=== PATIENT | male | born 1985 | race Caucasian/White ===

== ENCOUNTER 2023-10-26 06:28 | Emergency (ER) | payer BC, SELFPAY ==
[2023-10-26] VITALS (9 sets, daily range): BP systolic 80–140; BP diastolic 45–72; PULSE 56–85; RESP 18; TEMP 36.5–36.9; O2SAT 96–100; BMI 20.9
--- NOTE | 2023-10-26 06:31 | HMH.EDGENADL ---
Discharge Plan Disposition Patient Disposition: Home, Self-Care Condition: Good Prescriptions Prescriptions: New ondansetron 4 mg tablet,disintegrating 4 mg PO Q6 PRN (Reason: nausea and vomiting) 4 Days Qty: 16 0RF Activity Restrictions/Add. Instructions Additional Instructions/Restrictions: You have been evaluated in the ED for your complaints. You may follow-up with your PCP in the next 3 to 5 days. Please return to ED for any new or worsening symptoms. I have written for Karla to assist with your nausea. Clinical Impressions Clinical Impression: Abdominal pain Qualifiers: Abdominal location: left lower quadrant Qualified Code(s): R10.32 - Left lower quadrant pain Diarrhea Qualifiers: Diarrhea type: unspecified type Qualified Code(s): R19.7 - Diarrhea, unspecified Instructions Patient Instructions: DI for Acute Abdominal Pain Discharge ED Provider: Richar Cooper Adult HPI <Richar Cooper MD - Last Filed: 10/26/23 06:42> General Chief complaint: Abdominal Pain Stated complaint: abdominal pain Time Seen by Provider: 10/26/23 06:30 History of Present Illness HPI narrative: 38-year-old male with no significant past medical history presents with multiple complaints. He reports moderate to severe abdominal pain, localizing to the left lower quadrant. He reports he has been having diarrhea. He also reports some belching. Symptoms have been present since yesterday and have been worsening. No history of abdominal surgery. No reported fever. Denies any urinary symptoms Related Data Previous Rx's Medication Instructions Recorded ondansetron 4 mg disintegrating 4 mg PO Q6 PRN nausea and vomiting 10/26/23 tablet 4 days #16 tabs Allergies Allergy/AdvReac Type Severity Reaction Status Date / Time PENICILLIN Allergy Unknown HIVES, Uncoded 08/25/17 15:42 THROAT SWELLS [facility] <Richar Cooper MD - Last Filed: 10/26/23 06:42> [facility] Disclaimer: The information contained in this section may have been updated after the patient was seen, as this information can be updated by other users. Social History (Updated 10/26/23 @ 06:42 by Richar Cooper MD) Smoking Status: Unknown if ever smoked alcohol intake: never current occupational status: employed Travel in the last 8 weeks: None <Richar Cooper MD - Last Filed: 10/26/23 06:42> ROS Obtained: Yes All systems reviewed & no additional complaints except as documented Physical Exam <Richar Cooper MD - Last Filed: 10/26/23 06:42> General General appearance: alert Comment: Uncomfortable appearing Head Head exam: atraumatic and normocephalic Eye Eye exam: Present normal appearance, PERRL and EOMI ENT ENT exam: Present normal oropharynx and normal external ear exam Neck Neck exam: Present normal inspection and full ROM Chest Chest inspection: Present normal inspection and symmetric chest wall rise; Absent tenderness Respiratory Respiratory exam: Present normal lung sounds bilaterally; Absent respiratory distress Cardiovascular Cardiovascular exam: Present regular rate and normal rhythm Abdominal Exam Abdominal exam: Present soft and tenderness (Mild, generalized, worse in the left lower quadrant); Absent distention or guarding Extremities Exam Extremities exam: Present normal inspection; Absent edema or joint swelling Back Exam Back exam: Present normal inspection; Absent tenderness Neurological Exam Neurological exam: Present alert and oriented X3; Absent motor sensory deficit Psychiatric Psychiatric exam: Present normal affect and normal mood Skin Skin exam: Present warm, dry and normal color Lymphatic Lymphatic Findings: no adenopathy Medical Decision Making <Richar Cooper MD - Last Filed: 10/26/23 06:42> Medical Records Medical records reviewed: Yes I reviewed the patient's medical records. Franki Inquiry Pt receiving controlled substance: No Franki was queried for this patient: No Vital Signs: 10/26/23 06:29 10/26/23 07:09 10/26/23 07:30 Temperature 98.4 F Temperature Source Oral Pulse Rate 61 61 Pulse Rate [Radial] 73 Respiratory Rate 18 Blood Pressure 95/59 L Blood Pressure [Left Arm] 140/66 Blood Pressure Mean [Left Arm] 90 Blood Pressure Source [Left Arm] Automatic Cuff Blood Pressure Position [Left Arm] Supine 02 Sat by Pulse Oximetry 100 100 100 Oxygen Delivery Method Room Air Room Air 10/26/23 08:00 10/26/23 09:00 10/26/23 10:00 Temperature Temperature Source Pulse Rate 60 67 65 Pulse Rate [Radial] Respiratory Rate Blood Pressure 81/54 L 86/52 L 80/45 L Blood Pressure [Left Arm] Blood Pressure Mean [Left Arm] Blood Pressure Source [Left Arm] Blood Pressure Position [Left Arm] 02 Sat by Pulse Oximetry 99 97 96 Oxygen Delivery Method Room Air Room Air Lab Data Lab results reviewed: Yes I reviewed the patient's lab results. Lab Results 10/26/23 06:34: Urine Color Yellow, Urine Appearance Clear, Urine pH 7.5, Ur Specific [place] 1.020, Urine Protein Negative, Urine Glucose (UA) Negative, Urine Ketones Negative, Urine Blood Negative, Urine Nitrate Negative, Urine Bilirubin Negative, Urine Urobilinogen 1.0, Ur Leukocyte Esterase Negative, Urine RBC None, Urine WBC None, Ur Squamous Epith Cells 3-5, Urine Bacteria Trace 10/26/23 06:39: WBC 13.8 H, RBC 4.62, Hgb 16.0, Hct 46.8, MCV 101.4 H, MCH 34.6 H, MCHC 34.1, RDW 12.6, Plt Count 248, MPV 8.0, Neut % (Auto) 81.4 H, Lymph % (Auto) 13.1, [place] % (Auto) 3.9, Eos % (Auto) 1.4, Baso % (Auto) 0.1, Neut # (Auto) 11.2 H, Lymph # (Auto) 1.8, [place] # (Auto) 0.5, Eos # (Auto) 0.2, Baso # (Auto) 0.0, Sodium 138, Potassium 3.9, Chloride 105, Carbon Dioxide 28, Anion Gap 8.9, BUN 14, Creatinine 0.70, Estimated Creat Clear 139, Estimated GFR 125, Est GFR ( Amer) 151, Glucose 112 H, Calcium 9.1, Total Bilirubin 0.9, AST 26, ALT 22, Alkaline Phosphatase 58, Total Protein 7.3, Albumin 4.5, Globulin 2.8, Albumin/Globulin Ratio 1.6, Lipase 75 10/26/23 06:59: SARS-CoV-2 (PCR) Not detected, Influenza A Untype (PCR) Not detected, Influenza Type B (PCR) Not detected 10/26/23 06:39 10/26/23 06:39 Orders (Tests/Meds): ED MEDICATIONS Discontinued Medications Generic Name Dose Route Start Last Admin Trade Name Freq PRN Reason Stop Dose Admin Acetaminophen 1,000 mg 10/26/23 06:36 10/26/23 06:45 Acetaminophen 500mg Tab PO 10/26/23 06:37 1,000 mg ONCE ONE Administration Belladonna Alkaloids 60 ml 10/26/23 06:36 10/26/23 06:46 Belladonna Alkaloids 60 Ml Ml PO 10/26/23 06:37 60 ml ONCE ONE Administration Diphenhydramine HCl 12.5 mg 10/26/23 08:53 10/26/23 08:55 Diphenhydramine 50mg/Ml Vial IV 10/26/23 08:54 12.5 mg ONCE ONE Administration Lactated Ringer's 1,000 mls @ 999 mls/hr 10/26/23 07:15 10/26/23 07:12 Lactated Ringer's 1000 Ml Bag IV 10/26/23 08:15 999 mls/hr .Q1H1M NAHEED Administration Iopamidol 75 ml 10/26/23 08:14 10/26/23 08:14 Iopamidol-370 (76%);100ml Bottle IV 10/26/23 08:15 75 ml ONCE ONE Administration Ketorolac Tromethamine 30 mg 10/26/23 06:36 10/26/23 06:45 Ketorolac 30mg/Ml Vial IV 10/26/23 06:37 30 mg ONCE ONE Administration Ondansetron HCl 4 mg 10/26/23 06:36 10/26/23 06:45 Ondansetron 4mg/2ml Vial IV 10/26/23 06:37 4 mg ONCE ONE Administration Sodium Chloride 10 ml 10/26/23 08:14 10/26/23 08:14 Sodium Chloride 0.9% 10ml Syr (Rad Only) IV 10/26/23 08:15 10 ml ONCE ONE Administration ORDERS Category Date Time Status CT abdomen pelvis w con Stat Cat Scan 10/26/23 06:36 Completed CBC w/Auto Diff [Complete Blood Count Auto Diff] Stat Lab 10/26/23 06:39 Completed CMP [Comprehensive Metabolic Panel] Stat Lab 10/26/23 06:39 Completed Lipase Stat Lab 10/26/23 06:39 Completed Rapid PCR Covid and Flu A/B Stat Lab 10/26/23 06:59 Completed UA [Urinalysis and Microscopic] Stat Lab 10/26/23 06:34 Completed Medical Decision Narrative: 38-year-old male with no significant past medical history presents to the emergency department with nausea vomiting diarrhea and focal left lower quadrant abdominal pain. History was obtained interactive discussion with patient, family, chart review. On arrival, patient is [afebrile, hemodynamically stable, satting appropriately, alert, oriented x4, GCS 15], moving all extremities spontaneously. Full physical exam performed and significant for left lower quadrant abdominal tenderness Differential includes but is not limited to gastroenteritis, influenza, colitis, diverticulitis, pancreatitis. Patient was given Tylenol, Toradol, Zofran, GI cocktail for symptomatic management and correction of underlying abnormalities. Workup initiated including CBC CMP lipase CT abdomen pelvis with IV contrast. At this time care handed off to oncoming physician. <Amadou Peralta, DO - Last Filed: 10/26/23 10:32> Vital Signs: 10/26/23 06:29 10/26/23 07:09 10/26/23 07:30 Temperature 98.4 F Temperature Source Oral Pulse Rate 61 61 Pulse Rate [Radial] 73 Respiratory Rate 18 Blood Pressure 95/59 L Blood Pressure [Left Arm] 140/66 Blood Pressure Mean [Left Arm] 90 Blood Pressure Source [Left Arm] Automatic Cuff Blood Pressure Position [Left Arm] Supine 02 Sat by Pulse Oximetry 100 100 100 Oxygen Delivery Method Room Air Room Air 10/26/23 08:00 10/26/23 09:00 10/26/23 10:00 Temperature Temperature Source Pulse Rate 60 67 65 Pulse Rate [Radial] Respiratory Rate Blood Pressure 81/54 L 86/52 L 80/45 L Blood Pressure [Left Arm] Blood Pressure Mean [Left Arm] Blood Pressure Source [Left Arm] Blood Pressure Position [Left Arm] 02 Sat by Pulse Oximetry 99 97 96 Oxygen Delivery Method Room Air Room Air Lab Data Lab Results 10/26/23 06:34: Urine Color Yellow, Urine Appearance Clear, Urine pH 7.5, Ur Specific [place] 1.020, Urine Protein Negative, Urine Glucose (UA) Negative, Urine Ketones Negative, Urine Blood Negative, Urine Nitrate Negative, Urine Bilirubin Negative, Urine Urobilinogen 1.0, Ur Leukocyte Esterase Negative, Urine RBC None, Urine WBC None, Ur Squamous Epith Cells 3-5, Urine Bacteria Trace 10/26/23 06:39: WBC 13.8 H, RBC 4.62, Hgb 16.0, Hct 46.8, MCV 101.4 H, MCH 34.6 H, MCHC 34.1, RDW 12.6, Plt Count 248, MPV 8.0, Neut % (Auto) 81.4 H, Lymph % (Auto) 13.1, [place] % (Auto) 3.9, Eos % (Auto) 1.4, Baso % (Auto) 0.1, Neut # (Auto) 11.2 H, Lymph # (Auto) 1.8, [place] # (Auto) 0.5, Eos # (Auto) 0.2, Baso # (Auto) 0.0, Sodium 138, Potassium 3.9, Chloride 105, Carbon Dioxide 28, Anion Gap 8.9, BUN 14, Creatinine 0.70, Estimated Creat Clear 139, Estimated GFR 125, Est GFR ( Amer) 151, Glucose 112 H, Calcium 9.1, Total Bilirubin 0.9, AST 26, ALT 22, Alkaline Phosphatase 58, Total Protein 7.3, Albumin 4.5, Globulin 2.8, Albumin/Globulin Ratio 1.6, Lipase 75 10/26/23 06:59: SARS-CoV-2 (PCR) Not detected, Influenza A Untype (PCR) Not detected, Influenza Type B (PCR) Not detected Orders (Tests/Meds): ED MEDICATIONS Discontinued Medications Generic Name Dose Route Start Last Admin Trade Name Freq PRN Reason Stop Dose Admin Acetaminophen 1,000 mg 10/26/23 06:36 10/26/23 06:45 Acetaminophen 500mg Tab PO 10/26/23 06:37 1,000 mg ONCE ONE Administration Belladonna Alkaloids 60 ml 10/26/23 06:36 10/26/23 06:46 Belladonna Alkaloids 60 Ml Ml PO 10/26/23 06:37 60 ml ONCE ONE Administration Diphenhydramine HCl 12.5 mg 10/26/23 08:53 10/26/23 08:55 Diphenhydramine 50mg/Ml Vial IV 10/26/23 08:54 12.5 mg ONCE ONE Administration Lactated Ringer's 1,000 mls @ 999 mls/hr 10/26/23 07:15 10/26/23 07:12 Lactated Ringer's 1000 Ml Bag IV 10/26/23 08:15 999 mls/hr .Q1H1M NAHEED Administration Iopamidol 75 ml 10/26/23 08:14 10/26/23 08:14 Iopamidol-370 (76%);100ml Bottle IV 10/26/23 08:15 75 ml ONCE ONE Administration Ketorolac Tromethamine 30 mg 10/26/23 06:36 10/26/23 06:45 Ketorolac 30mg/Ml Vial IV 10/26/23 06:37 30 mg ONCE ONE Administration Ondansetron HCl 4 mg 10/26/23 06:36 10/26/23 06:45 Ondansetron 4mg/2ml Vial IV 10/26/23 06:37 4 mg ONCE ONE Administration Sodium Chloride 10 ml 10/26/23 08:14 10/26/23 08:14 Sodium Chloride 0.9% 10ml Syr (Rad Only) IV 10/26/23 08:15 10 ml ONCE ONE Administration ORDERS Category Date Time Status CT abdomen pelvis w con Stat Cat Scan 10/26/23 06:36 Completed CBC w/Auto Diff [Complete Blood Count Auto Diff] Stat Lab 10/26/23 06:39 Completed CMP [Comprehensive Metabolic Panel] Stat Lab 10/26/23 06:39 Completed Lipase Stat Lab 10/26/23 06:39 Completed Rapid PCR Covid and Flu A/B Stat Lab 10/26/23 06:59 Completed UA [Urinalysis and Microscopic] Stat Lab 10/26/23 06:34 Completed Medical Decision Narrative: 38-year-old male with no significant past medical history presents to the emergency department with nausea vomiting diarrhea and focal left lower quadrant abdominal pain. History was obtained interactive discussion with patient, family, chart review. On arrival, patient is [afebrile, hemodynamically stable, satting appropriately, alert, oriented x4, GCS 15], moving all extremities spontaneously. Full physical exam performed and significant for left lower quadrant abdominal tenderness Differential includes but is not limited to gastroenteritis, influenza, colitis, diverticulitis, pancreatitis. Patient was given Tylenol, Toradol, Zofran, GI cocktail for symptomatic management and correction of underlying abnormalities. Workup initiated including CBC CMP lipase CT abdomen pelvis with IV contrast. At this time care handed off to oncoming physician. Dr. Peralta: WBC of 13.8. CMP nonactionable. Lipase within range at 75. No transaminitis. Urinalysis without signs of UTI. Negative COVID and influenza swabs. CT results noting constipation without any other acute intra-abdominal abnormalities. On reassessment the patient remains medically stable and in no acute distress. Has been able to tolerate oral intake. Pain is controlled at this time. Discussed with patient ED work-up and results and current plan to discharge with prescription for Zofran to further assist. Also discussed use of MiraLAX as needed. Provided with return to ED precautions and instructions concerning PCP follow-up. Patient verbalized understanding and agreement with plan. Subsequently discharged hemodynamically stable and in no acute distress. Procedures <Richar Cooper MD - Last Filed: 10/26/23 06:42> Risk/Benefits of Procedure(s) Were Explained: Yes Critical Care <Richar Cooper MD - Last Filed: 10/26/23 06:42> Critical Care Time Critical Care Time: No
--- NOTE | 2023-10-26 06:36 | CT_ITS ---
FINAL REPORT TECHNIQUE: After the administration of intravenous contrast, axial images were obtained through the abdomen and pelvis by computed tomography. The study was performed with techniques to keep radiation dose as low as reasonably achievable, (ALARA). Individual dose reduction techniques using automated exposure control or adjustment of mA and/or kV according to the patient's size were employed. CLINICAL HISTORY: nausea,vomiting, LLQ pain COMPARISON: None FINDINGS: Abdomen: The lung bases are clear. The liver parenchyma is homogeneous. The gallbladder is present. The spleen, pancreas, adrenals and kidneys appear unremarkable. The aorta is normal in caliber. There is no free fluid or adenopathy. Pelvis: The appendix is normal. The urinary bladder is normal in size and configuration. There is a moderate amount of stool throughout the colon. There is no free fluid or adenopathy. No evidence of acute inflammation. IMPRESSION: Constipation. Reviewed, Interpreted and Dictated by Giovanni Corona MD Transcribed by Nava Arenas Authenticated and [facility]
[2023-10-26] MEDS: KETOROLAC 30MG/ML VIAL 30 MG IV (06:45)
[2023-10-26] MEDS: ACETAMINOPHEN 500MG TAB 1000 MG PO (06:45)
[2023-10-26] MEDS: ONDANSETRON 4MG/2ML VIAL 4 MG IV (06:45)
[2023-10-26] MEDS: BELLADONNA ALKALOIDS 60 ML ML PO (06:46)
[2023-10-26 06:47] LABS: Basophils % 0.1 % (0.1-2.0); Eosinophils # 0.2 K/mm3 (0.0-0.4); Eosinophils % 1.4 % (0.1-12.0); Hematocrit 46.8 % (42.0-52.0); Lymphocytes # 1.8 K/mm3 (0.7-4.5); Lymphocytes % 13.1 % (10-50); Mean Corpuscular HGB Conc 34.1 g/dL (31.8-35.4); Mean Corpuscular Hemoglobin 34.6 pg (27.0-31.2); Mean Corpuscular Volume 101.4 fl (80-94); Monocytes # 0.5 K/mm3 (0.1-1.0); Monocytes % 3.9 % (1.7-9.3); Neutrophils # 11.2 K/mm3 (1.8-7.8); Neutrophils % 81.4 % (37.0-80.0); Platelet Count 248 K/mm3 (142-424); Red Blood Count 4.62 M/mm3 (4.60-6.20); Red Cell Distribution Width 12.6 % (11.5-17.5); White Blood Count 13.8 K/mm3 (4.8-10.8)
[2023-10-26 07:02] LABS: Coronavirus 19, PCR Not Detected (NotDetected); Influenza A, PCR Not Detected (NotDetected); Influenza B, PCR Not Detected (NotDetected)
[2023-10-26] MEDS: LACTATED RINGERS 1000ML 1,000 ML 999 ML IV (07:12)
--- NOTE | 2023-10-26 07:12 | PC.NURSE ---
Rounded on pt. No needs or complaints voiced at this time. Call light placed within reach.
[2023-10-26 07:13] LABS: Chloride 105 mmol/L (98-107); Potassium 3.9 mmoL/L (3.5-5.1); Sodium 138 mmol/L (136-145)
[2023-10-26 07:16] LABS: Alanine Aminotransferase 22 U/L (12-78); Albumin Level 4.5 g/dl (3.5-5.0); Albumin/Globulin Ratio 1.6 (1.1-1.8); Alkaline Phosphatase 58 U/L (38-126); Anion Gap 8.9 mEq/L (5-15); Aspartate Amino Transferase 26 U/L (17-59); Bilirubin,Total 0.9 mg/dl (0.2-1.3); Blood Urea Nitrogen 14 mg/dl (9-20); Calcium 9.1 mg/dl (8.4-10.2); Carbon Dioxide 28 mmol/L (22.0-30.0); Creatinine Clearance Estimated 139 mL/min (50-200); Estimated Glomerular Filt Rate 125 ml/min (>60); GFR (African American) 151 ML/MIN (>60); Globulin 2.8 g/dL (1.3-3.2); Glucose 112 mg/dl (74-100); Lipase 75 U/L (23-300); Total Protein,Serum 7.3 g/dl (6.3-8.2)
--- NOTE | 2023-10-26 07:36 | PC.NURSE ---
FAMILY UPDATED AT THIS TIME
--- NOTE | 2023-10-26 08:09 | PC.NURSE ---
DR ZAPATA AT BEDSIDE TO UPDATE PT AND FAMILY ON POC
--- NOTE | 2023-10-26 08:11 | PC.NURSE ---
PT TO CT
[2023-10-26] MEDS: IOPAMIDOL-370 (76%);100ML BOTTLE 75 ML IV (08:14)
[2023-10-26] MEDS: SODIUM CHLORIDE 0.9% 10ML SYR (RAD ONLY) 10 ML IV (08:14)
--- NOTE | 2023-10-26 08:18 | PC.NURSE ---
PT RETURNED FROM CT
[2023-10-26 08:42] LABS: Microscopic, Urine URINE MICROSCOPIC (MICROSCOPIC)
[2023-10-26 08:45] LABS: Appearance,Urine CLEAR (Clear); Bilirubin,Urine Negative (Negative); Blood, Urine Negative (Negative); Color,Urine YELLOW (Yellow); Glucose,Urine (UA) Negative (Negative); Ketones,Urine Negative (Negative); Leukocyte Esterase,Urine Negative (Negative); Nitrate,Urine Negative (Negative); PH,Urine 7.5 (5.0-8.5); Protein,Urine Negative (Negative)
--- NOTE | 2023-10-26 08:51 | PC.NURSE ---
Patient complaining of itching. MD notified.
[2023-10-26] MEDS: diphenhydrAMINE 50MG/ML VIAL 12.5 MG IV (08:55)
[2023-10-26 09:00] LABS: Bacteria,Urine Trace /lpf
--- NOTE | 2023-10-26 09:13 | PC.NURSE ---
Patient resting in bed quietly.
--- NOTE | 2023-10-26 09:39 | PC.NURSE ---
Rounded on patient. Pillow provided. No other needs at this time.
--- NOTE | 2023-10-26 10:18 | PC.NURSE ---
Rounded on pt. Pt resting in bed with eyes closed. Respirations even and unlabored. Visitor remains at BS and call light within reach.
== END 2023-10-26 10:52 | disposition home or self-care (01) ==
PROVIDERS: Emergency Medicine; Emergency Provider Emergency Medicine
DX: R10.32 Left lower quadrant pain (principal); R19.7 Diarrhea, unspecified; R11.2 Nausea with vomiting, unspecified
CPT/HCPCS: 74177; 80053; 81001; 83690; 85025; 87636; 96361; 96374; 96375; 99285; J2405; Q9967

== ENCOUNTER 2025-04-11 16:30 | Outpatient (CLI) | payer BC, SELFPAY ==
[2025-04-11 17:26] LABS: Hematocrit 40.8 % (42.0-52.0); Hemoglobin 13.6 g/dL (14.1-18.0); Immature Granulocytes % 0.3 %; Mean Corpuscular HGB Conc 33.3 g/dL (31.8-35.4); Mean Corpuscular Hemoglobin 32.6 pg (27.0-31.2); Mean Corpuscular Volume 97.8 fl (80-94); Nucleated Red Blood Cells % 0 %; Platelet Count 214 K/mm3 (142-424); Red Blood Count 4.17 M/mm3 (4.60-6.20); Red Cell Distribution Width-SD 44.4 fL; White Blood Count 6.2 K/mm3 (4.8-10.8)
[2025-04-11 18:46] LABS: Albumin Level 3.8 g/dl (3.5-5.0); Chloride 102 mmol/L (98-107); Potassium 3.9 mmoL/L (3.5-5.1); Sodium 136 mmol/L (136-145)
[2025-04-11 18:48] LABS: Alanine Aminotransferase 16 U/L (12-78); Aspartate Amino Transferase 23 U/L (17-59); Blood Urea Nitrogen 10 mg/dl (9-20); Creatinine,Serum 0.50 mg/dl (0.66-1.25); Estimated Glomerular Filt Rate 183 ml/min (>60); GFR (African American) 222 ML/MIN (>60)
[2025-04-11 18:49] LABS: Albumin/Globulin Ratio 1.3 (1.1-1.8); Alkaline Phosphatase 55 U/L (38-126); Anion Gap 8.9 mEq/L (5-15); Bilirubin,Total 0.8 mg/dl (0.2-1.3); Calcium 9.4 mg/dl (8.4-10.2); Carbon Dioxide 29 mmol/L (22.0-30.0); Cholesterol 143 mg/dl (140-200); Globulin 2.9 g/dL (1.3-3.2); Glucose 81 mg/dl (74-100); HDL Cholesterol 34 mg/dl (40-60); Total Protein,Serum 6.7 g/dl (6.3-8.2); Triglycerides 117 mg/dl (30-150)
[2025-04-11 19:38] LABS: Hepatitis C Ab Qual. W/ RFX NEGATIVE (Negative)
[2025-04-11 20:17] LABS: Hemoglobin A1C 5.0 % (4.0-6.0)
== END 2025-04-11 23:59 | disposition home or self-care (01) ==
LOC: LAB.DROPOF 04-12 09:25
PROVIDERS: PCP Internal Medicine; Visit Provider Internal Medicine
DX: Z00.00 Encounter for general adult medical examination without abnormal findings (principal); D75.89 Other specified diseases of blood and blood-forming organs; Z11.59 Encounter for screening for other viral diseases; Z11.4 Encounter for screening for human immunodeficiency virus [HIV]; I25.10 Atherosclerotic heart disease of native coronary artery without angina pectoris
CPT/HCPCS: 80053; 80061; 83036; 85025; 86803; 87389

== ENCOUNTER 2025-04-17 15:32 | Outpatient (CLI) | payer BC, SELFPAY ==
--- NOTE | 2025-04-17 15:30 | US_ITS ---
FINAL REPORT TECHNIQUE: Sonographic images of the abdomen were obtained in all four quadrants. CLINICAL HISTORY: Abd pain COMPARISON: None FINDINGS: LIVER: Homogeneous. No focal hepatic lesion or intrahepatic biliary dilatation. Portal vein is patent. GALLBLADDER: No gallstones. Small amount of sludge. No pericholecystic fluid collection or gallbladder wall thickening. The common duct measures 5 mm. This is within normal limits for age. PANCREAS: Unremarkable. RIGHT KIDNEY: 11.0 cm. No hydronephrosis, mass or stone. LEFT KIDNEY: 10.9 cm. No hydronephrosis, mass or stone. SPLEEN: 10.5 cm. No focal splenic lesion. AORTA/IVC: No abdominal aortic aneurysm. Visualized IVC within normal limits. OTHER: No ascites. IMPRESSION: Small amount of sludge in the gallbladder. Otherwise, unremarkable exam. Reviewed, Interpreted and Dictated by Juany Carlson MD Transcribed by Nava Arenas Authenticated and [facility]
--- OUTSIDE RECORDS SUMMARY | 2025-04-17 15:34 | XMS_ITS | Clinical Summary ---
[facility] Address [address] [place] [address] Care Team Providers Care Track Laying Machine Operator Name Role Phone Provider, No Known Primary Care Provider Unavail able Allergies Active Allergy Reactions Criticality Noted Date Comments Penicillins Anaphylaxis High 02/08/2017 Medications multivitamin with minerals tablet tablet Take 1 tablet by mouth Daily. Active fluticasone (FLONASE) 50 MCG/ACT nasal spray 2 sprays into the nostril(s) as directed by provider Daily. Active rosuvastatin (Crestor) 10 MG tabletIndications:Mi xed hyperlipidemia,Coron deidre arteriosclerosis due to lipid rich plaque Take 1 tablet by mouth Daily. 90 tablet 3 1 Active aspirin (aspirin) 81 MG EC tabletIndications:Co ronary arteriosclerosis due to lipid rich plaque Take 1 tablet by mouth Daily. 90 tablet 3 1 Active Active Problems No known active problems Immunizations Immunization Administration Dates Next Due Hep B, Adolescent or Pediatric 06/07/1998,1997 Influenza, Unspecified 10/14/2019 Family History Medical History Relation Name Comments Heart attack Father Heart attack Mother Heart disease Mother Heart murmur Mother Hypertension Mother Thyroid disease Mother Coronary artery disease Paternal Grandfather No Known Problems Sister 1 No Known Problems Sister 2 Relation Name Status Comments Father Alive Mother Alive Paternal Grandfather Sister 1 Sister 2 Social History Tobacco Use Types Packs/Day Years Used Date Smoking Tobacco: Every Day Cigarettes 1.5 27 Smokeless Tobacco: Never Comments:pt currently vapes Alcohol Use Standard Drinks/Week Comments No 0 (1 standard drink = 0.6 oz pur e alcohol) Abuse Screen Answer Date Recorded Unsafe at Home or Work/School Not on file Feels Threatened by Someone? Not on file 07/2023 Does Anyone Keep You from Co ntacting Others or Doint Things Outside the Home? Not on file 06/17/2023 Physical Sign of Abuse Present Not on file 1 Housing Stability Answer Date Recorded Current Living Arrangements Not on file 06/07 Potentially Unsafe Housing Conditions Not on ruby e 06/17/2023 Family and Community Support Answer Neto e Recorded Help with Day-to-Day Activities Not on file 06/17/2023 Lonely or Isolated Not on file 06/17/2023 Employment Answer Date Recorded Do you want help finding or keeping work or a angelia b? Not on file 06/17/2023 Disabilities Answer Date Recorded Concentrating, Remembering, or Making Decisions Difficulty Not on file 06/17/2023 Doing Errands Independently Difficulty Not on fi le 06/17/2023 Education Answer Date Recorded Help with school or training? Not on file Preferred Language Not on file 06/17/2023 Sex and Gender Information Value Date Recorded Sex Assigned at Not on file Legal Sex Male 8:04 AM EDT Gender Identity Not on file Sexual Orientation Not on file Last Filed Vital Signs Vital Sign Reading Time Taken Comments Blood Pressure 100/70 08/14/2021 3:03 PM EST Pulse 94 08/14/2021 3:03 PM EST Temperature 36.6 C (97.9 F) 08/14/2021 3:03 PM EST Respiratory Rate 20 08/14/2021 3:03 PM EST Oxygen Saturation 98% 08/14/2021 3:03 PM EST Inhaled Oxygen Concentration - - Weight 87.1 kg (192 lb) 08/28/2021 3:12 PM EST Height 182.9 cm (6') 08/28/2021 3:12 PM EST Body Mass Index 26.04 08/28/2021 3:12 PM EST Plan of Treatment Health Maintenance Due Date Last Done Comments Pneumococcal Vaccine 0-49 (1 of 2 - PCV) 2002 TDAP/TD VACCINES (1 - Tdap) 2002 ANNUAL PHYSICAL 02/08/2017 HEPATITIS C SCREENING 02/08/2017 COVID-19 Vaccine ( - season) 2024 INFLUENZA VACCINE 06/07/2025 10/14/2019 Insurance [employer] [facility] Care Teams Track Laying Machine Operator Relationship Specialty Start Date End Date Provider, [place] [address] PCP - General 02/08/17
== END 2025-04-17 23:59 | disposition home or self-care (01) ==
LOC: RAD 15:33
PROVIDERS: PCP Internal Medicine; Visit Provider Internal Medicine
DX: K82.8 Other specified diseases of gallbladder (principal)
CPT/HCPCS: 76700

== ENCOUNTER 2025-05-09 07:53 | Outpatient (CLI) | payer BC, SELFPAY ==
--- OUTSIDE RECORDS SUMMARY | 2011-10-01 11:25 | XMS_ITS | Continuity of Care Document ---
Author Organization [facility] Address [address] [place] [address] Phone Care Team Providers Care Senior Treasury Consultant Name Role Phone Rich Skinner DO Unavailable Unavailable Advance Directives Directive Yes / No Effective Date File Name Resuscitation Not Answered N/A N/A Life Support Not Answered N/A N/A Intubation Not Answered N/A N/A Antibiotics Not Answered N/A N/A IV Fluid Support Not Answered N/A N/A Tube Feed Not Answered N/A N/A Other Directive N/A N/A WARNING:The information contained in this section is historical and is provided for information only and does not constitute a legal document or any assurance that the information is still accurate. Please verify the information with the carey of the legal document before using it for clinical purposes. Encounters Encounter Description Practice Location Reason(s) For Visit Diagnoses Date Provider [facility], [address] [place] [address], [facility], tel:[phone] [address] [place] [address] No Information Brody Villanueva. [address] [place] [address], [id number], . tel:[phone] [facility], [address] [place] [address], [facility], tel:[phone] [address] [place] [address] No Information Brody Villanueva. [address] [place] [address], [id number], . tel:[phone] Family History Family Member Type Diagnosis Age At Onset No Information Payers Payer name Insurance type Covered constitution party ID Authoriza tion(s) No Information Social History Type Description Quantity Date Captured Comments Sex Male Smoking Status No Information Chief Complaint And Reason For Visit No Information History Of Present Illness Encounter Date Complaint History Of Prese nt Illness No Information Instructions Date Instruction Additional Infor mation No Information Assessments Type Assessment Date No Information
--- OUTSIDE RECORDS SUMMARY | 2025-05-09 07:55 | XMS_ITS | Clinical Summary ---
[facility] Address [address] [place] [address] Care Team Providers Care Mechanical Striper Name Role Phone Provider, No Known Primary [...] 2024 INFLUENZA VACCINE 06/07/2025 10/14/2019 Insurance [employer] [facility] Care Teams Mechanical Striper Relationship Specialty Start Date End Date Provider, [place] [address] PCP - General 02/08/17
--- NOTE | 2025-05-09 08:00 | CA_ITS ---
APPROVED REPORT EXAM: Comprehensive 2D, Doppler, and color-flow Echocardiogram Bulldozer Press Operator: Arin Lucas RT(R) Ht: 6 ft 0 in Wt: 149lbs BSA: 1.88 BP: 101/67 mmHg Indications: Abnormal EKG, dizziness, smoker 2D Dimensions LA Volume 25.00 mL LA Volume Index 13.30 mL/m2 (M/F) 16-34 GL Strain -19.3 % M-Mode Dimensions RVDd 2.16 cm (0.9-2.6) LA Diam 2.67 cm (1.9-4.0) LVDd 4.78 cm (3.5-5.7) LVDs 3.72 cm (3.5-5.7) IVSd 0.66 cm (0.6-1.1) PWd 0.72 cm (0.6-1.1) EF (Teich) 44.70% FS 22.20% EDV (Teich) 106.50 mL ESV (Teich) 58.90 mL LV Diastology E Decel Time 167 (160-240 msec) E/A Ratio 2.0 Mitral Valve MV E Max Lonnie. 84.0 (40-130 cm/s) MV A Velocity 41.0 (40-130 cm/s) E/A Ratio 2.04 MV PHT 49.0 ms Left Ventricle The left ventricle is normal size. Left ventricular systolic function is low normal. There is normal left ventricular wall thickness. There is normal LV segmental wall motion. The left ventricular diastolic function is normal. LVEF is 50%. Right Ventricle The right ventricle is normal size. The right ventricular systolic function is normal. Atria The left atrium size is normal. The right atrium size is normal. There is no color Doppler evidence of interatrial shunt. Aortic Valve The aortic valve opens well. There is no hemodynamically significant aortic valvular stenosis. No aortic regurgitation is present. Mitral Valve The mitral valve is normal in structure. No evidence of mitral valve stenosis. Trace mitral regurgitation is present. Tricuspid Valve The tricuspid valve leaflets are thin and pliable. Mild tricuspid regurgitation. RVSP is 20-25 mmHg. Pulmonic Valve The pulmonary valve is grossly normal in structure. Trace pulmonic valve regurgitation is present. Great Vessels The aortic root is normal in size. IVC is normal in size and collapses >50% with inspiration. Pericardium There is no pericardial effusion. Other Information Study Quality: Fair Conclusion Low normal LV systolic functio (LVEF 50%). Mild TR. Electronically signed by : Janay العلي MD 05/09/2025 12:37:09
== END 2025-05-09 23:59 | disposition home or self-care (01) ==
LOC: RT 07:54
PROVIDERS: PCP Internal Medicine; Visit Provider Physician Assistant
DX: I07.1 Rheumatic tricuspid insufficiency (principal); R94.31 Abnormal electrocardiogram [ECG] [EKG]; R42 Dizziness and giddiness; F17.200 Nicotine dependence, unspecified, uncomplicated; Z82.49 Family history of ischemic heart disease and other diseases of the circulatory system
CPT/HCPCS: 93306

== ENCOUNTER 2025-06-06 08:31 | Outpatient (CLI) | payer BC, SELFPAY ==
--- NOTE | 2025-06-06 08:30 | CT_ITS ---
FINAL REPORT TECHNIQUE: Axial CT images of the chest were obtained without contrast. Low-dose protocol was utilized. This study was performed with techniques to keep radiation doses as low as reasonably achievable (ALARA). Individualized dose reduction techniques using automated exposure control or adjustment of mA and/or kV according to the patient's size were employed. CLINICAL HISTORY: lung cancer screening quit smoking 10 years ago now vapes. smoked 1 ppd x 33 years. COMPARISON: None FINDINGS: CT CHEST WITHOUT, LOW DOSE SCREENING CTDl vol(mGy): 2.90 DLP (mGy-cm): 107.33 Former smoker 33 pack year history There is no axillary adenopathy. There is no mediastinal mass or adenopathy. The heart size is normal. There is no pericardial or pleural effusion. Lung window images demonstrate a fissural nodule measuring 5 mm on image 43 of series 4. There is a 4 mm pleural-based nodule in the periphery of the right middle lobe on image 56 of series 4. Limited images of the upper abdomen are unremarkable. IMPRESSION: Nodules along the minor fissure and in the periphery of the right middle lobe. Lung RADS category 2. Recommend 12 month follow-up low-dose chest CT per Fleischner criteria. Reviewed, Interpreted and Dictated by Giovanni Corona MD Transcribed by Scarlet Florez Authenticated and . [facility]
--- OUTSIDE RECORDS SUMMARY | 2025-06-06 08:37 | XMS_ITS | Clinical Summary ---
[facility] [address] [place] [address] Care Team Providers Care Drilling Contractor Name Role Phone Provider, No Known Primary [...] ANNUAL PHYSICAL 02/08/2017 HEPATITIS C SCREENING 02/08/2017 INFLUENZA VACCINE 04/07/2025 10/14/2019 Insurance [facility] Care Teams Drilling Contractor Relationship Specialty Start Date End Date Provider, [place] [address] PCP - General 02/08/17
== END 2025-06-06 23:59 | disposition home or self-care (01) ==
LOC: RAD 08:32
PROVIDERS: PCP Internal Medicine; Visit Provider Physician Assistant
DX: Z12.2 Encounter for screening for malignant neoplasm of respiratory organs (principal); R91.8 Other nonspecific abnormal finding of lung field; F17.290 Nicotine dependence, other tobacco product, uncomplicated; Z82.49 Family history of ischemic heart disease and other diseases of the circulatory system
CPT/HCPCS: 71271

== ENCOUNTER 2025-06-19 16:38 | Emergency (ER) | payer BC, SELFPAY ==
[2025-06-19] VITALS (8 sets, daily range): BP systolic 110–123; BP diastolic 70–81; PULSE 55–69; RESP 15–20; TEMP 37; O2SAT 97–100; BMI 20.3
--- NOTE | 2025-06-19 16:48 | ED_ITS ---
Discharge Plan Disposition Patient Disposition: Home, Self-Care Condition: Good Prescriptions Prescriptions: New methocarbamol 750 mg tablet 1,500 mg PO Q8H 7 Days Qty: 42 0RF ketorolac 10 mg tablet 10 mg PO Q8H 5 Days Qty: 15 0RF No Action fluticasone propionate [Flonase Allergy Relief] 50 mcg/actuation spray,suspension 1 spray intranasal DAILY Rx Instructions: administer into each nostril multivitamin Tablet 1 tab PO DAILY Referrals Follow up/Referrals: John Pillai DO [Primary Care Provider, Family Practice] - See instructions Activity Restrictions/Add. Instructions Additional Instructions/Restrictions: You may take Toradol and Robaxin as prescribed for pain and muscle relaxation at home. If you have any new or worsening symptoms please return to the ER for further evaluation. Clinical Impressions Clinical Impression: Lumbar paraspinal muscle spasm Instructions Patient Instructions: DI for Low Back Pain Print Language Print Language: Uzbek Discharge ED Provider: Bart Reyez General Adult HPI <Nedra Wiggins - Last Filed: 06/19/25 16:50> General Chief complaint: Back Pain/Injury Stated complaint: lower back pain extending down both legs Time Seen by Provider: 06/19/25 17:45 Mode of Arrival: Ambulatory Source of Information: Patient Description of Symptoms (Recalled from ER Triage Doc. by RN): Pt woke up with lower back pain. No injury or trauma. Pt states the pain is radiating down to bilateral legs. Related Data Home Medications ?Medication ?Instructions ?Recorded ?Confirmed fluticasone propionate 50 1 spray intranasal DAILY 06/19/25 mcg/actuation nasal spray,suspension (Flonase Allergy Relief) multivitamin 1 tab PO DAILY 04/21/2506/07 Previous Rx's ?Medication ?Instructions ?Recorded ketorolac 10 mg tablet 10 mg PO Q8H 5 days #15 tabs 06/19/25 methocarbamol 750 mg tablet 1,500 mg (2 x 750 mg) PO Q 8H 7 06/19/25 days #42 tabs Allergies Allergy/AdvReac Type Severity Reaction Status Date / Time PENICILLIN Allergy Unknown HIVES, Uncoded 05/16/25 15:34 THROAT SWELLS <Bart Reyez DO - Last Filed: 06/19/25 19:54> History of Present Illness HPI narrative: Is a 40-year-old male patient, with no reported past medical history, who is presenting to the emergency department today for evaluation of back pain. Patient states that he has had gradually onset lower back pain over the last couple of days. He states that he does perform somewhat rigorous activity while at work. He localizes his pain to the paraspinal region of the lumbar spine. He states that he sometimes feels pain radiate into the anterior aspect of his leg but it never crosses the knee. He is not having any saddle anesthesia, urinary incontinence, urinary retention, urinary incontinence, weakness, or sensory deficits in the lower extremities. He also denies any history of IV drug use and he denies any instance of overt traumatic injury to the back. No history of cancer either. [facility] <Nedra Wiggins - Last Filed: 06/19/25 16:50> [facility] Disclaimer: The information contained in this section may have been updated after the patient was seen, as this information can be updated by other users. Medical History Smoker Social History Smoking Status: Current every day smoker tobacco type: e-cigarettes alcohol intake: current alcohol intake frequency: holidays/special occasions only substance use type: denies use current occupational status: employed Travel in the last 8 weeks?: None Have you lived/traveled outside US in past 30 days?: No Contact w/someone who lives/traveled outside US past 30 days?: No Exposure to someone with infectious disease in past 14 days?: No Do you have a fever (greater than 100.4 F or 38 C)?: No Have you tested positive for COVID-19?: No Exposed to someone with COVID-19 in past 14 days?: No Do you have a sore throat?: No Do you have a cough?: No Do you have any weakness?: No Do you have any diarrhea?: No Are you experiencing any unusual bleeding?: No Do you have any muscle aches/pain?: No Do you have any abdominal pain?: No Are you experiencing loss of taste or smell?: No <Bart Reyez DO - Last Filed: 06/19/25 19:54> ROS Obtained: Yes Systems reviewed as appropriate & no additional complaints except as documented Physical Exam <aBrt Reyez DO - Last Filed: 06/19/25 19:54> General General appearance: other (See MDM) Respiratory Respiratory exam: Present other (See MDM) Cardiovascular Cardiovascular exam: Present other (See MDM) Neurological Exam Neurological exam: Present other (See MDM) Medical Decision Making <Nedra Wiggins - Last Filed: 06/19/25 16:50> Medical Records Screening: Per USPSTF and CDC recommendations, given the prevalence of disease in our region, it is our hospital?s policy to screen for HIV and viral Hepatitis for all patients aged 18 and over and those with ongoing risk factors. Vital Signs: 06/19/25 16:39 06/19/25 16:47 06/19/25 19:00 Temperature 98.6 F Temperature Source Temporal Artery Scan Pulse Rate 69 69 Pulse Rate [Right] 65 Respiratory Rate 18 20 15 Blood Pressure 120/70 110/76 Blood Pressure [Right Arm] 122/72 Blood Pressure Mean 83 Blood Pressure Mean [Right Arm] 88 Blood Pressure Source [Right Arm] Automatic Cuff Blood Pressure Position Sitting Blood Pressure Position [Right Arm] Sitting 02 Sat by Pulse Oximetry 99 100 99 Oxygen Delivery Method Room Air Room Air Orders (Tests/Meds): ED MEDICATIONS Discontinued Medications Generic Name Dose Route Start Last Admin Trade Name Freq PRN Reason Stop Dose Admin Acetaminophen 1,000 mg 06/19/25 18:01 06/19/25 18:23 Acetaminophen 500mg Tab PO 06/19/25 18:02 1,000 mg ONCE ONE Administration Ketorolac Tromethamine 30 mg 06/19/25 18:01 06/19/25 18:23 Ketorolac 30mg/Ml Vial IM 06/19/25 18:02 30 mg ONCE ONE Administration Lidocaine 1 each 06/19/25 18:34 06/19/25 18:41 Lidocaine 5% Transdermal Patch TD 06/19/25 18:35 1 each ONCE ONE Administration Methocarbamol 1,500 mg 06/19/25 18:01 06/19/25 18:23 Methocarbamol 500mg Tablet PO 06/19/25 18:02 1,500 mg ONCE ONE Administration Oxycodone HCl 5 mg 06/19/25 18:01 06/19/25 18:23 Oxycodone 5mg Immediate Release Tablet PO 06/19/25 18:02 5 mg ONCE ONE Administration <Bart Reyez DO - Last Filed: 06/19/25 19:54> Medical Records Medical records reviewed: Yes I reviewed the patient's medical records. Franki Inquiry Pt receiving controlled substance: No Franki was queried for this patient: No Vital Signs: 06/19/25 16:39 06/19/25 16:47 06/19/25 19:00 Temperature 98.6 F Temperature Source Temporal Artery Scan Pulse Rate 69 69 Pulse Rate [Right] 65 Respiratory Rate 18 20 15 Blood Pressure 120/70 110/76 Blood Pressure [Right Arm] 122/72 Blood Pressure Mean 83 Blood Pressure Mean [Right Arm] 88 Blood Pressure Source [Right Arm] Automatic Cuff Blood Pressure Position Sitting Blood Pressure Position [Right Arm] Sitting 02 Sat by Pulse Oximetry 99 100 99 Oxygen Delivery Method Room Air Room Air Orders (Tests/Meds): ED MEDICATIONS Discontinued Medications Generic Name Dose Route Start Last Admin Trade Name Freq PRN Reason Stop Dose Admin Acetaminophen 1,000 mg 06/19/25 18:01 06/19/25 18:23 Acetaminophen 500mg Tab PO 06/19/25 18:02 1,000 mg ONCE ONE Administration Ketorolac Tromethamine 30 mg 06/19/25 18:01 06/19/25 18:23 Ketorolac 30mg/Ml Vial IM 06/19/25 18:02 30 mg ONCE ONE Administration Lidocaine 1 each 06/19/25 18:34 06/19/25 18:41 Lidocaine 5% Transdermal Patch TD 06/19/25 18:35 1 each ONCE ONE Administration Methocarbamol 1,500 mg 06/19/25 18:01 06/19/25 18:23 Methocarbamol 500mg Tablet PO 06/19/25 18:02 1,500 mg ONCE ONE Administration Oxycodone HCl 5 mg 06/19/25 18:01 06/19/25 18:23 Oxycodone 5mg Immediate Release Tablet PO 06/19/25 18:02 5 mg ONCE ONE Administration Medical Decision Narrative: In summary this is a 40-year-old male patient who is presenting to the emergency department today for evaluation of lower back pain that is onset gradually over the last couple of days and occasionally radiates into the anterior aspect of his bilateral lower extremities. He denies weakness, numbness and tingling, saddle anesthesia, IV drug use, fevers and chills, overt traumatic injury, and history of cancer. The patient does not have any reported medical history. On initial evaluation of the patient they were resting comfortably in no acute distress and nontoxic in appearance. They are hemodynamically stable, saturating well room air, and are neurologically intact. On physical examination he is appropriately alert and interactive with a GCS of 15. His heart and lungs are clear to auscultation bilaterally. His abdomen is soft and nontender to palpation. He is able to ambulate without difficulty or ataxia. He has no tenderness of the C, T, or L-spine. He does have tenderness in the paraspinal muscular region of the lumbar spine. He has no CVA tenderness. Differential diagnosis includes lumbar muscle spasm, lumbar radiculopathy, among others. I have a low suspicion for urinary tract origin of his symptoms as he is not experiencing any hematuria, dysuria, or urinary frequency. Additionally, I have a low suspicion for spinal cord syndrome given that he is not experiencing any red flag back symptoms and his postvoid residual volume is 0. The patient does not necessitate any advanced imaging as I feel that would be of low utility in this case. We will treat the patient with 30 mg of IM Toradol, 1 g of Tylenol, 1500 mg Robaxin, and lidocaine patches to improve his pain and reassess. On repeat assessment the patient states that his pain has adequately improved after the interventions provided above. He is still not experiencing any neurologic deficits or weakness. We will send the patient with a prescription for Robaxin and Toradol to continue taking at home for pain and muscle laxation. I have urged the patient to return to the emergency department if he experienced any saddle anesthesia, urinary incontinence, urinary retention, motor weakness, or sensory deficits. He knowledges understanding. At this time all questions have answered and all parties are agreeable with the decision to discharge home Critical Care <Bart Reyez DO - Last Filed: 06/19/25 19:54> Critical Care Time Critical Care Time: No
--- OUTSIDE RECORDS SUMMARY | 2025-06-19 17:28 | XMS_ITS | Clinical Summary ---
[facility] Address [address] [place] [address] Care Team Providers Care Casino Manager Name Role Phone Provider, No Known Primary [...] SCREENING 02/08/2017 INFLUENZA VACCINE 04/07/2025 10/14/2019 Insurance [facility] Care Teams Casino Manager Relationship Specialty Start Date End Date Provider, [place] [address] PCP - General 02/08/17
[2025-06-19] MEDS: METHOCARBAMOL 500MG TABLET 1500 MG PO (18:23)
[2025-06-19] MEDS: ACETAMINOPHEN 500MG TAB 1000 MG PO (18:23)
[2025-06-19] MEDS: KETOROLAC 30MG/ML VIAL 30 MG IM (18:23)
[2025-06-19] MEDS: OXYCODONE 5MG IMMEDIATE RELEASE TABLET 5 MG PO (18:23)
[2025-06-19] MEDS: LIDOCAINE 5% TRANSDERMAL PATCH 1 EACH TD (18:41)
== END 2025-06-19 20:07 | disposition home or self-care (01) ==
PROVIDERS: Emergency Provider Student in an Organized Health Care Education/Training Program; PCP Internal Medicine
DX: M62.830 Muscle spasm of back (principal); M54.59 Other low back pain
CPT/HCPCS: 51798; 96372; 99283; 99285; J1885